=== PATIENT | female | born 1940 | race Caucasian/White ===

== ENCOUNTER 2023-11-11 01:14 | Inpatient (IN) | payer OTHER, SELFPAY ==
[2023-11-10 20:27] VITALS: BP 150/96
[2023-11-10 23:05] VITALS: BP 170/60
[2023-11-10 23:11] VITALS: BMI 21.7
--- NOTE | 2023-11-10 23:19 | ED.GENMED ---
History of Present Illness
General
Chief Complaint: Fall
Source: patient and spouse
Exam Limitations: none
Time Seen by Provider: 11/10/23 23:02
Nursing documentation reviewed up to this point in time: agreed with
Travel History
Have you had any contact with someone who has COVID-19?: No
Do you have any symptoms of coronavirus? Fever > 100 degrees, chills, cough, shortness of breath, sore throat, loss of taste or smell, muscle aches, or headache?: No
History of Present Illness
History of Present Illness:
Pleasant 83-year-old female that presents with right upper leg pain. Patient was in the garden and tripped on a rock on the border. She fell landing on her right thigh. She felt immediate pain. Had difficulty bearing weight. She denies any head
strike or loss of consciousness. She is not on any blood thinners. She reports no other injury. She is accompanied by her . states that she was diagnosed recently with early dementia
Vital signs are stable. Patient not hypoxic
Nursing note reviewed. I agree with nursing documentation up to this point in time.
Home Meds and allergies reviewed.
NUMBER AND COMPLEXITY OF PROBLEMS ADDRESSED AT THE ENCOUNTER
� Chronic conditions affecting care: Hypertension, hyperlipidemia, varicosities of the bilateral lower extremities
� Acute Exacerbation and/or Progression of Chronic Illness: Acute injury
� Differential Diagnosis includes: Hip fracture, musculoskeletal pain, pelvic fracture
AMOUNT AND/OR COMPLEXITY OF DATA TO BE REVIEWED AND ANALYZED
I performed an independent evaluation of the following and my interpretation is:
EKG:
CT:
X-rays: Right femur fracture
Ultrasound:
Laboratory Studies:
Other:
Review of other/old records: Operative report by Dr. Mercado on 06/14/2022 for the unilateral primary osteoarthritis of her right hip.
Clinical information was obtained by an independent historian: present at the bedside
Prescriptions/Medications Considered but not given:
Further testing considered but not performed:
RISK OF COMPLICATIONS AND/OR MORBIDITY OR MORTALITY OF PATIENT MANAGEMENT
Social determinants of health affecting care: Good Social Support
Discussion with other providers: Spoke with Dr. Barriga and Dr. Jimenez. Patient will be admitted to the hospitalist service
Escalation of care including admission/observation vs risk of discharge considered: Patient unable to ambulate due to fracture. She is normally ambulatory. She will be admitted.
CRITICAL CARE NOTE: Not applicable
Total Time (exclusive of procedures):
Update:
Past History
Past History
ED Past Surgical History: Gynecological, Orthopedic (Left hip replacement) and Other (Left mastectomy)
Social History
Tobacco: Non-smoker
Alcohol: Occasional
Drug: None
Personal:
Living: with family
Employment: Employed (Teaches one-day a week)
Review of Systems
Review of Systems
Allergies reviewed?: Yes
Other source history: family
All Other Systems: ROS reviewed and negative except as documented in HPI and ROS
Constitutional: Reports no symptoms
EENT: Reports no symptoms
Respiratory: Reports no symptoms
Cardiac: Reports no symptoms
ABD/GI: Reports no symptoms
: Reports no symptoms
Musculoskeletal: Reports joint pain and muscle stiffness
Skin: Reports no symptoms
Neurological: Reports no symptoms
Endocrine: Reports no symptoms
Hematologic/Lymphatic: Reports no symptoms
Psychiatric: Reports no symptoms
Phy Exam
General Physical Exam
General Presentation: well appearing and no apparent distress
General age: appears stated age
General Skin: warm and dry
General Habitus: normal, elderly and other (Hard of hearing, has bilateral hearing aids)
General Mental: alert and angry (Angry over situation of being admitted)
General Hydration: appears well hydrated
Eye Exam
Eye Exam: PERRL
Pulmonary Exam
Pulmonary Exam: lungs clear and no respiratory distress
Gastrointestinal Exam
Gastrointestinal Exam: non tender and soft
Neurological Exam
Neurological Exam: alert and oriented x3
Musculoskeletal Exam
Musculoskeletal Exam: no edema, joint swelling and neuro vasc intact
Skin Exam
Skin Exam: normal color and warm/dry
Psychiatric Exam
Psychiatric Exam: normal mood/affect, agitated and anxious
Course
Orders/Labs/Results
Orders:
Orders
11/10/23 22:02
CR Femur - Right Min 2 Vw Urgent
Comment:
Reason For Exam: fall, injury
11/10/23 23:11
Comprehensive Metabolic Panel Urgent
Prothrombin Time Urgent
11/10/23 23:12
Complete Blood Count/With Diff Urgent
11/10/23 23:45
PT Consult [Pt Eval And Treat] Urgent
Activity Level: Bedrest for limited time
11/11/23 00:01
Admit/Transfer Patient As Directed
Co-Sign Provider:
Level of Care: Inpatient admission
Assign to:: Medical/Surgical
Physician / Group: Ángel
Diagnosis: Right hip fracture
Reason for Hospitalization: Fall and right hip fracture
Expected length of stay greater than two midnights?: Yes
ELOS- Estimated Length of Stay in days: 3
I certify the patient meets the requirements for IP care: Yes
11/11/23 00:04
Code Status As Directed
Resuscitation Status: Full Code
11/11/23 00:14
Ketorolac [Toradol] 15 mg IV Q6HPRN PRN
11/11/23 01:00
Flush (0.9% Sodium Chloride) [Flush (Nss)] See Dose Instructions IV PER PROTOCOL
11/11/23 02:26
Morphine Sulfate 2 mg IV Q4HPRN PRN
11/11/23 02:26
ORTHOPEDIC CONSULT Routine
Consulting Provider: Austin Barriga
Was physician already notified: Yes
Reason for consult: R hip fracture
Activity As Directed
Activity Level: With Assistance
Precautions As Directed
Type of Precautions: Aspiration
Comment: fall precuation
Vital Signs As Directed
Frequency: Per unit guidelines
Ot Eval And Treat Routine
DX Deep Vein Thrombosis Video Routine
11/11/23 05:38
Basic Metabolic Panel IN AM
Complete Blood Count/With Diff IN AM
Magnesium IN AM
TSH IN AM
11/11/23 Breakfast
Cholesterol Lowering
At Your Request: Full Participation
Cholesterol Lowering: Sodium, 2 Gram
11/11/23 08:00
Acetaminophen [Tylenol] 650 mg PO QID
Amlodipine [Norvasc] 5 mg PO DAILY
Calcium Carbonate/Vitamin D3 [Oscal 500 + D] 500 mg PO BID
Clopidogrel Bisulfate [Plavix] 75 mg PO DAILY
Heparin 5,000 units SC Q8
11/11/23 18:00
Atorvastatin [Lipitor] 80 mg PO QPM
11/11/23 22:00
Aspirin Low Dose EC [Aspir Low (Enteric Coated)] 81 mg PO HS
Famotidine [Pepcid] 20 mg PO HS
Abnormal Lab Results
11/10/23 11/10/23
23:11 23:12
WBC 10.9 H 10^3/uL
(4.8-10.8)
MPV 10.5 H fL
(7.4-10.4)
Absolute Neuts (auto) 7.7 H 10^3/uL
(1.4-6.5)
Absolute Monos (auto) 1.1 H 10^3/uL
(0.1-0.6)
Lymphocytes % 16.2 L %
(20.5-51.1)
Monocytes % 9.8 H %
(1.7-9.3)
BUN 20 H mg/dl
(7-17)
Glucose 109 H mg/dl
(70-99)
AST 38 H U/L
(14-36)
11/10/23 23:12
11/10/23 23:11
Vital Signs
Initial and Last Documented VS:
Initial Vital Signs
Temp Pulse Resp BP Pulse Ox
97.9 F 70 20 150/96 98
11/10/23 20:27 11/10/23 20:27 11/10/23 20:27 11/10/23 20:27 11/10/23 20:27
Last Documented Vital Signs
Temp Pulse Resp BP Pulse Ox
97.6 F 78 16 134/60 98
11/11/23 19:13 11/11/23 19:13 11/11/23 19:13 11/11/23 19:13 11/11/23 19:13
*Critical Care Note
Total Time (30-74mins, 75-104mins- exclusive of procedures): Not Applicable
Update Note
Update Note:
According to Dr. Barriga, nondisplaced transverse periprosthetic greater trochanter fracture. Fortunately these can be treated nonoperatively. Okay for wbat with walker. Follow up 2 weeks for X-rays. No active abduction with physical therapy.
Patient is nonambulatory. Will order PT consult.
ED Attending Note
-
Portions of this chart may have been created with voice recognition software.� Occasional wrong word or��sound alike� substitutions may have occurred due to the inherent limitations of voice recognition software.
Discharge Plan
Departure
Patient Disposition: Admit
Date of Disposition: 11/10/23
Time of Disposition: 23:23
Presentation/result/management discussed w/ accepting MD/DO: Hospitalist
Discharge Problem:
Closed right femoral fracture, Closed intertrochanteric fracture
Interventions
Interventions:
*Risk Screen - Suicide Last Done: 11/11/23 07:12
*General Assessment Last Done: 11/10/23 23:16
*Neglect/Abuse Screening Last Done: 11/10/23 23:18
ED- Fall Risk Assessment Last Done: 11/10/23 23:18
*ED COVID-19 Vaccine History Last Done: 11/10/23 20:32
*Nursing Disposition Last Done: 11/11/23 06:45
ED-Musculoskeletal Assessment Last Done: 11/10/23 23:20
ED- Neurological Assessment Last Done: 11/11/23 19:13
ED-Skin Assessment Last Done: 11/11/23 19:13
Discharge Date and Time
Discharge Date/Time: 11/11/23 20:38
[2023-11-10 23:29] LABS: % Basophils 0.6 % (0-2); % Eosinophils 2.3 % (0-6); % Immature Granulocytes 0.4 % (0-0.5); % Lymphocytes 16.2 % (20.5-51.1); % Monocytes 9.8 % (1.7-9.3); % Neutrophils 70.7 % (42.2-75.2); Absolute Basophils 0.1 10^3/uL (0-0.2); Absolute Eosinophils 0.3 10^3/uL (0-0.7); Absolute Lymphocytes 1.8 10^3/uL (1.2-3.4); Absolute Monocytes 1.1 10^3/uL (0.1-0.6); Absolute Neutrophils 7.7 10^3/uL (1.4-6.5); Hematocrit 37.6 % (37.0-47.0); Mean Corp Hgb Conc. 34.6 g/dL (33.0-37.0); Mean Corpuscular Hgb 30.7 pg (27.0-31.0); Mean Corpuscular Volume 88.9 fL (81.0-99.0); Mean Platelet Volume 10.5 fL (7.4-10.4); Nucleated Red Blood Cells % 0 %; Platelet Count 242 10^3/uL (130-400); Red Blood Cell Count 4.23 10^6/uL (4.20-5.40); Red Cell Dist. Width 13.7 % (11.5-14.5); White Blood Cell Count 10.9 10^3/uL (4.8-10.8)
[2023-11-10 23:38] LABS: ALT (SGPT) 22 U/L (0-35); AST (SGOT) 38 U/L (14-36); Albumin 4.2 g/dl (3.5-5.0); Alkaline Phosphatase 108 U/L (38-126); Blood Urea Nitrogen 20 mg/dl (7-17); Calcium 9.6 mg/dl (8.4-10.2); Carbon Dioxide 27 mmol/L (22-30); Chloride 104 mmol/L (98-107); Estimated Creatinine Clearance 53 ml/min; Glucose 109 mg/dl (70-99); Potassium 4.1 mmol/L (3.5-5.1); Sodium 138 mmol/L (135-145); Total Bilirubin 0.7 mg/dl (0.2-1.3); Total Protein 6.8 g/dl (6.3-8.2); eGFR > 60.00
[2023-11-11] VITALS: BP 150/74
[2023-11-11 00:04] LABS: INR 1.01; PT 13.1 Sec (11.4-14.6)
--- NOTE | 2023-11-11 00:09 | HPS.HSE ---
Family Physician
-
Family Physician: Angie Mantilla
Chief Complaint
-
Mechanical fall
History of Present Illness
83-year-old female with history of hypertension, early dementia, osteoarthritis, who lives at home with her , at the bedside provide detailed information, she supposed to use walker and cane but she does not, look like earlier today
while she was at home watching her working in the backyard look like she can go some stone in the backyard and she fell hitting the right side to the ground immediately experienced severe pain and has been helped out to get up.
Denies any syncope or loss of consciousness or any palpitation or chest pain.
According to the who provide detailed information she does not want to use walker or cane. Look like she had another episode like this 4 months ago broke left hip.
Ortho been contacted and has a prosthesis in the right hip but this nondisplaced fracture from orthospine recommendation is for conservative management with PT OT and pain management.
Past medical history archive reviewed:
Dementia
Hypertension
Osteoarthritis
GERD
History of stroke
Social history: Lives at home with , no smoking, while occasionally drinks some alcohol .
Family history: Reviewed and noncontributory
Medical History
Past Medical History
Past Medical History: Reports Other
Past Surgical History: Reports Other
Social History
Tobacco: Other
Family History
Family History: Other
Allergies / Home Medications
Allergies reflects when Allergies were last updated in [employer].
Home Medications with original date entered in [employer]
Allergy/Medication List:
Allergies
Allergy/AdvReac Type Severity Reaction Status Date / Time
latex [Latex] Allergy Swelling Verified 11/10/23 20:32
Sulfa (Sulfonamide Allergy Itching Verified 11/10/23 20:32
Antibiotics)
amoxicillin [Amoxicillin] AdvReac SLIGHT VAG Verified 11/10/23 20:32
ITCH
Home Medications
amlodipine 5 mg tablet 5 mg PO DAILY 10/26/10
hydrochlorothiazide 25 mg tablet 25 mg PO DAILY 10/26/10
atorvastatin 80 mg tablet 80 mg PO QPM 10/23/16
calcium citrate 315 mg calcium-vitamin D3 6.25 mcg (250 unit) tablet 1 ea PO BID 01/07/18
bkkukpiq-ret-lzkrx acid 0.4 mg-lycopene 300 mcg-lutein 250 mcg tablet (Centrum Silver) 1 ea PO HS 01/07/18
aspirin 81 mg tablet,delayed release 81 mg PO HS 05/29/22
fluocinolone 1 dose topical Q48H 05/29/22
fluoride (sodium) 1.1 % dental paste (Sodium Fluoride 5000 Dry Mouth) 1 applic dental HS 05/29/22
ketoconazole 1 % shampoo 1 applic topical Q3D 05/29/22
triamcinolone acetonide 0.1 % topical ointment 1 applic topical DAILY PRN RASH 05/29/22
acetaminophen 325 mg tablet 650 mg (2 x 325 mg) PO QID #0 tabs 06/15/22
aspirin 325 mg tablet 325 mg PO DAILY Blood clot prevention/tx #1 tab 06/15/22
clopidogrel 75 mg tablet 75 mg PO DAILY stroke #0 tabs 06/15/22
dexamethasone 2 mg tablet 2 mg PO Q12 #11 tabs 06/15/22
docusate sodium 100 mg capsule 100 mg PO BID #1 cap 06/15/22
famotidine 20 mg tablet 20 mg PO HS GI prophylaxis #30 tabs 06/15/22
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
oxycodone 5 mg tablet 5 - 10 mg (1 - 2 x 5 mg) PO Q6HPRN PRN 1 tab moderate-2 tabs severe pain #30 tabs 06/15/22
sennosides 8.6 mg tablet (senna) 17.2 mg (2 x 8.6 mg) PO BID laxative #2 tabs 06/15/22
Review of Systems
-
A 12 point ROS was completed and negative except as noted: Yes
Physical Exam
Vital Signs
Vital Signs
Temp Pulse Resp BP Pulse Ox
97.9 F 63 13 170/60 97
11/10/23 20:27 11/10/23 23:05 11/10/23 23:05 11/10/23 23:05 11/10/23 23:14
Physical Exam
General: Other
Laboratory Results
-
11/10/23 23:12
11/10/23 23:11
Laboratory Results
PT 13.1 Sec (11.4-14.6) 11/10/23 23:11
INR 1.01 11/10/23 23:11
Total Bilirubin 0.7 mg/dl (0.2-1.3) 11/10/23 23:11
AST 38 U/L (14-36) H 11/10/23 23:11
ALT 22 U/L (0-35) 11/10/23 23:11
Alkaline Phosphatase 108 U/L (38-126) 11/10/23 23:11
Right hip x-ray:nondisplaced transverse periprosthetic greater trochanter fracture
Impression/Plan
-
IMPRESSION:
83-year-old female with history of hypertension, early dementia dyslipidemia, had a mechanical fall after her foot trapped between some stone in her backyard and fall sideways in the right side and the workup showed nondisplaced fracture in the
right greater trochanteric around prosthesis.
nondisplaced transverse periprosthetic greater trochanter fracture
Early dementia
Hypertension with mild elevation of the blood
History of stroke
Dyslipidemia
PLAN:
Pain control with morphine as needed
Toradol as needed
Ortho consult
No plan for surgery since nondisplaced and is's per Ortho recommendation
PT OT
Fall aspiration precaution
Continue aspirin and Plavix
At hydralazine as needed for systolic more than 170
Amlodipine
All discussed with the patient and the will provide detailed information
Discussed with the ER physician
CODE STATUS full code
DVT prophylaxis heparin subcu
[2023-11-11 01:00] VITALS: BP 144/76
[2023-11-11 05:46] LABS: % Basophils 0.9 % (0-2); % Eosinophils 2.4 % (0-6); % Immature Granulocytes 0.3 % (0-0.5); % Lymphocytes 14.8 % (20.5-51.1); % Monocytes 10.9 % (1.7-9.3); % Neutrophils 70.7 % (42.2-75.2); Absolute Basophils 0.1 10^3/uL (0-0.2); Absolute Eosinophils 0.2 10^3/uL (0-0.7); Absolute Lymphocytes 1.3 10^3/uL (1.2-3.4); Absolute Neutrophils 6.2 10^3/uL (1.4-6.5); Hematocrit 38.4 % (37.0-47.0); Hemoglobin 13.2 g/dL (12.0-16.0); Mean Corp Hgb Conc. 34.4 g/dL (33.0-37.0); Mean Corpuscular Hgb 30.8 pg (27.0-31.0); Mean Corpuscular Volume 89.7 fL (81.0-99.0); Mean Platelet Volume 10.3 fL (7.4-10.4); Nucleated Red Blood Cells % 0 %; Platelet Count 229 10^3/uL (130-400); Red Blood Cell Count 4.28 10^6/uL (4.20-5.40); Red Cell Dist. Width 13.6 % (11.5-14.5); White Blood Cell Count 8.7 10^3/uL (4.8-10.8)
[2023-11-11 06:02] LABS: Blood Urea Nitrogen 16 mg/dl (7-17); Calcium 9.3 mg/dl (8.4-10.2); Carbon Dioxide 24 mmol/L (22-30); Chloride 106 mmol/L (98-107); Estimated Creatinine Clearance 70 ml/min; Glucose 103 mg/dl (70-99); Magnesium 1.9 mg/dl (1.6-2.3); Potassium 3.6 mmol/L (3.5-5.1); Sodium 137 mmol/L (135-145); eGFR > 60.00
[2023-11-11 06:30] LABS: TSH 4.38 uIU/ml (0.47-4.68)
[2023-11-11 07:44] VITALS: BP 136/79
[2023-11-11] MEDS: TYLENOL 650 MG PO ×3 (07:46→21:02)
[2023-11-11] MEDS: HEPARIN 5000 UNITS SC ×2 (07:46→15:19)
[2023-11-11] MEDS: NORVASC 5 MG PO (07:47)
[2023-11-11] MEDS: PLAVIX 75 MG PO (07:47)
[2023-11-11] MEDS: OSCAL 500 + D 500 MG PO ×2 (07:51→20:04)
[2023-11-11 07:57] VITALS: BP 146/78
--- NOTE | 2023-11-11 08:07 | W.PN.HOSP.TC ---
Addendum entered and electronically signed by José Antonio Steiner MD 11/11/23 15:33:
Patient has been repeatedly very impulsive difficult to keep at bedrest and was given a dosage of 0.5 mg of IV Ativan with little effect/she will be a continued risk for falls given her continued impulsive behavior and underlying dementia and
difficult to redirect will add dose of Risperdal tonight and increase Ativan as needed for agitation
Original Note:
Today's Communication/Plan
-
PT OT assessment will be julio to the side on level of independence and discharge plan
Assessment / Plan
Assessment / Plan
83-year-old female with history of hypertension, early dementia, osteoarthritis, who lives at home with her , at the bedside provide detailed information, she supposed to use walker and cane but she does not, look like earlier today
while she was at home watching her working in the backyard look like she can go some stone in the backyard and she fell hitting the right side to the ground immediately experienced severe pain and has been helped out to get up.
Denies any syncope or loss of consciousness or any palpitation or chest pain.
According to the who provide detailed information she does not want to use walker or cane. Look like she had another episode like this 4 months ago broke left hip.
Ortho been contacted and has a prosthesis in the right hip but this nondisplaced fracture from orthospine recommendation is for conservative management with PT OT and pain management.
Nondisplaced transverse periprosthetic RT greater trochanter fracture
Early dementia
Hypertension with mild elevation of the blood
History of stroke
Dyslipidemia
PLAN:
Pain control with morphine as needed
Toradol as needed
Ortho consult
No plan for surgery since nondisplaced and is's per Ortho recommendation/weightbearing as tolerated
PT OT/will need to see how she does this morning as was unsteady on her feet after out of bed overnight in ED and attempts to ambulate.
Fall /aspiration precaution
Continue aspirin and Plavix
At hydralazine as needed for systolic more than 170
Amlodipine
All discussed with the patient and the will provide detailed information
Discussed with the ER physician and orthopedics this morning
CODE STATUS full code
DVT prophylaxis heparin subcu
Anticipated Discharge: Within 24 hours
Subjective/Interval History
-
Date of Service: November 11, 2023
She is frustrated over the fact that she fell and met with orthopedics this morning and told she may be able to go home but nursing noted she was quite unsteady on her feet would get out of bed she will be weightbearing as tolerated and will need PT
assessment prior to discharge plan
Objective Data
-
Labs:
Laboratory Results
11/10/23 11/10/23 11/11/23
23:11 23:12 05:38
WBC 10.9 H 8.7
Hgb 13.0 13.2
Hct 37.6 38.4
Plt Count 242 229
PT 13.1
INR 1.01
Sodium 138 137
Potassium 4.1 3.6
Chloride 104 106
Carbon Dioxide 27 24
BUN 20 H 16
Creatinine 0.8 0.6
Glucose 109 H 103 H
Calcium 9.6 9.3
Total Bilirubin 0.7
AST 38 H
ALT 22
Alkaline Phosphatase 108
Vital Signs:
Vital Signs
Temp Pulse Resp BP Pulse Ox
98.1 F 68 16 146/78 98
11/11/23 07:44 11/11/23 07:47 11/11/23 07:44 11/11/23 07:57 11/11/23 07:44
Review of Systems
-
History Source: Patient
Constitutional: Reports No Symptoms
Abdomen/GI: Reports No Symptoms
Musculoskeletal: Reports Joint Pain and Muscle Pain
Physical Exam
-
General: Well Developed
HEENT: Normocephalic
Respiratory: Clear to Auscultation
Cardiac: Regular Rhythm
GI: Soft
Genito-urinary: Costovertebral Angle Tend
Musculoskeletal: Edema, Right Lower Extrem
Data Reviewed
-
Total Time Spent with Patient (in minutes): 45
Labs: Labs Reviewed by me (CBC and chemistry stable)
--- NOTE | 2023-11-11 08:10 | W.PN.UPDATE ---
Update Note
Progress Note Update
Full orthopedic consult dictated:
Dx: Nondisplaced right hip periprosthetic femur fracture (greater trochanter)
Plan: X-rays right hip/femur show nondisplaced fracture greater trochanter. Right hip/knee prosthesis appears stable and no other fractures noted. Dr. Barriga reviewed studies and no surgical intervention required. Patient may weight-bear
as tolerated but must avoid active hip abduction. Cleared for PT but again avoid active hip abduction. Follow-up orthopedic office 2 weeks for x-rays to make sure no displacement of the fracture.
[2023-11-11] MEDS: TYLENOL PO (12:56)
[2023-11-11] MEDS: ATIVAN 0.5 MG IV (13:36)
[2023-11-11] MEDS: NSS (PRESERVATIVE FREE) 0.25 ML IV (13:37)
[2023-11-11 15:10] VITALS: BP 155/70
--- NOTE | 2023-11-11 15:11 | CM ---
Addendum entered by Richa Tang RN 11/11/23 15:47:
Patient has been recommended for home care. Patient's is agreeable to [facility]. Referral sent via [facility]. Patient's explained that he's very tired and does not want to take patient home until tomorrow am. CM updated hospitalist.
PLAN: Home with VN
Original Note:
CM met with patient in room. Patient's confirmed demographics. Patient lives . She stays on the first floor. Patient does not have a history of SNF. Patient briefly has VN services, but patient's does not know agency. Not
currently on services. Patient is active with her PCP. Patient has medication coverage.
Patient's uncertain on discharge plan preference. CM will await PT evaluation for further discharge planning efforts.
[2023-11-11] MEDS: LIPITOR 80 MG PO (17:20)
--- NOTE | 2023-11-11 18:20 | PTCARENOTE ---
pt very active throughout the day using RW with stand by assistance provided. pt is confused and forgetful requiring a lot of redirecting which is difficult as pt is very stubborn as conveyed by her spouse who has been present with pt since 8 am
leaving at 1730. admission staff notified of pts behaviors and tendencies for room placement and staff allocation. MD Steiner aware of behavior as well and has provided appropriate PRN and HS medication orders. pt eating dinner in ER stretcher
watching TV, rail up x1, bed low, call barrios and belongings in reach, room near RN station, staff working POD is aware of pts impulsive behaviors with fall risk wrist band and precautions in place. care plan continues to be followed.
--- NOTE | 2023-11-11 19:00 | PTCARENOTE ---
Video monitoring established to further ensure safety.
[2023-11-11 19:13] VITALS: BP 134/60
--- NOTE | 2023-11-11 19:15 | EDRN ---
Per report, pt has been walking around with walker and recently escaped into waiting room. Med sitter set up in pt room and it was explained to pt. Pt sitting on side of stretcher, smiling and pleasant. Pt oriented to self, does not know where
she is or why. When informed she is in the hospital and has a broken hip, she nodded her head and said that sounded familiar 'like someone told me that before.' Pt thinks it is the s. Pt denies pain and offers no complaints. While taking BP
on R arm, pt said she had a mastectomy on that side - informed pt if was on her L side and showed her the limb alert bracelet she is wearing to notify staff of this. Pt felt her breasts and said 'oh yeah, you're right.' This happened twice while
taking pt's VS. Pt given ice water to drink per request. Oriented pt to her room, call barrios. Pt declines watching TV, has magazines at bedside. Adjusted HOB for pt.
--- NOTE | 2023-11-11 19:30 | EDRN ---
Pt came out of room multiple times and had to be re-directed by this RN. Pt insistent on walking to bathroom upstairs. Pt argumentative. Pt given toothbrush, toothpaste and soap and directed into bathroom. Pt smiling, laughing and pleasant
stating 'I like you.'
[2023-11-11] MEDS: RISPERDAL 0.25 MG PO (21:02)
[2023-11-11] MEDS: ASPIR LOW (ENTERIC COATED) 81 MG PO (21:02)
[2023-11-11] MEDS: PEPCID 20 MG PO (21:02)
[2023-11-11] MEDS: HEPARIN SC (23:06)
[2023-11-12 00:31] VITALS: BP 140/66
[2023-11-12] MEDS: SYNTHROID 25 MCG PO (05:50)
[2023-11-12 07:41] VITALS: BP 144/77
[2023-11-12] MEDS: TYLENOL 650 MG PO (09:08)
[2023-11-12] MEDS: PLAVIX 75 MG PO (09:09)
[2023-11-12] MEDS: NORVASC 5 MG PO (09:09)
[2023-11-12] MEDS: HEPARIN 5000 UNITS SC (09:09)
[2023-11-12] MEDS: OSCAL 500 + D 500 MG PO (09:09)
--- NOTE | 2023-11-12 09:17 | W.PN.HOSP.TC ---
Addendum entered and electronically signed by Caleb Xavier MD 11/12/23 14:14:
Patient witnessed by nursing staff to ambulate around the hallways fine.
PT recommends home care.
Will discharge home with oxycodone, Tylenol; case management to set up home PT/visiting nurses.
Follow-up with orthopedic surgery in the office in 2 weeks for repeat x-rays.
Original Note:
Today's Communication/Plan
-
see bold
Assessment / Plan
Assessment / Plan
83-year-old female with history of hypertension, early dementia, osteoarthritis, who lives at home with her , at the bedside provide detailed information, she supposed to use walker and cane but she does not, look like earlier today
while she was at home watching her working in the backyard look like she can go some stone in the backyard and she fell hitting the right side to the ground immediately experienced severe pain and has been helped out to get up.
Denies any syncope or loss of consciousness or any palpitation or chest pain.
According to the who provide detailed information she does not want to use walker or cane. Look like she had another episode like this 4 months ago broke left hip. Ortho been contacted and has a prosthesis in the right hip but this
nondisplaced fracture from orthospine recommendation is for conservative management with PT OT and pain management.
#Nondisplaced transverse periprosthetic RT greater trochanter fracture
Appreciate orthopedic surgery input, recommend nonsurgical management
Weightbearing as tolerated, avoid abduction
PT/OT, pain control
PT recommends home care
#Early dementia
Continue risperidone
Monitor mental status
#Benign essential hypertension
Continue amlodipine
#Hyperlipidemia
#Stroke
Continue statin, aspirin
#Hypothyroidism
Continue levothyroxine
#DVT prophylaxis�subcu Lovenox
Full code
Physical Exam
General: No acute distress
HEENT: Normocephalic, Atraumatic, EOMI, MMM
Respiratory: Clear to Auscultation bilaterally
Cardiac: Normal S1/S2, Regular Rate and Rhythm
GI: Soft, Nontender, Nondistended, Normal Bowel Sounds
Extremities: No Clubbing, Cyanosis, or Edema
Neuro: Nonfocal/Grossly Intact
Psych: Calm, Cooperative
Anticipated Discharge: Within 24 hours
Subjective/Interval History
-
Date of Service: November 12, 2023
Complains of right hip pain. Denies constipation. No chest pain, no shortness of breath.
Objective Data
-
Vital Signs:
Vital Signs
Temp Pulse Resp BP Pulse Ox
98.4 F 74 18 144/77 96
11/12/23 07:41 11/12/23 07:41 11/12/23 07:41 11/12/23 07:41 11/12/23 07:41
I&O
11/11/23 11/12/23 11/13/23
06:59 06:59 06:59
Intake Total 250 / 250
Balance 250 / 250
[2023-11-12] MEDS: TYLENOL PO (14:10)
--- NOTE | 2023-11-12 14:13 | W.DCSUMMARY ---
Discharge Summary
Discharge Data
Date of Admission: 11/11/23
Date of Discharge: 11/12/23
-
Pending Results: No
Hospital Course
Discharge diagnosis:
Nondisplaced transverse periprosthetic right proximal femur fracture
Early dementia
Benign essential hypertension
Hyperlipidemia
Stroke
Hypothyroidism
Consults: Orthopaedic surgery
Right Femur XR:
There is a right hip prosthesis. Prosthetic components appear aligned. There is a transverse nondisplaced fracture of the proximal femur. There are no additional fractures. There is a knee prosthesis which appears aligned. There are no lytic or
sclerotic lesions. Vascular calcifications are noted.
Hospital Course:
83-year-old female with a past medical history of early dementia, hypertension, and osteoarthritis who suffered a mechanical fall, and was admitted for right hip pain. Patient was found to have a nondisplaced periprosthetic right proximal femur
fracture. She was seen in conjunction with orthopedic surgery, who recommended conservative management, weightbearing as tolerated with no hip abduction. Patient was treated pain control, PT/OT. PT recommends home care. Patient was witnessed to
ambulate in the hallways without any difficulty. She is medically stable for discharge with home PT. She needs to follow-up with orthopedic surgery in the office in 2 weeks for repeat x-rays.
Disposition: Home with home care
Discharge planning: Required 33 minutes
Discharge Plan
-
Patient Disposition: Home with Home Care
Discharge Diagnosis/Procedures: Nondisplaced transverse periprosthetic right greater trochanter fracture
Condition: Fair
Diet: Regular
Activity: As tolerated
Additional Activity: Weightbearing as tolerated, no abduction
Other Services: VN and PT
Instructions: Preventing falls in adults
Referrals:
Angie Mantilla DO [Family Provider] - in one week
Austin Barriga MD [Active] - in two weeks
Prescriptions:
New
oxycodone 5 mg Tablet
5 mg PO Q4HPRN PRN (Reason: moderate pain) Qty: 30 0RF
acetaminophen 500 mg tablet
1,000 mg PO TID @ 0800,1200,1700 Qty: 180 0RF
Continued
amlodipine 5 MG tablet
5 mg PO DAILY
atorvastatin 80 MG tablet
80 mg PO QPM
Centrum Silver 1 EACH tablet
1 ea PO HS
calcium citrate-vitamin D3 1 EACH tablet
1 ea PO BID
aspirin 81 MG tablet,delayed release (DR/EC)
81 mg PO HS
Hold Instructions: Resume on 07/13/22. resume when full dose ASA is d/c in one month
levothyroxine 25 mcg tablet
25 mcg PO DAILY
Discharge Orders:
Discharge Patient (As Directed); Ordered 11/12/23
Ordered By: Caleb Xavier
Discharge Date and Time
Discharge Date/Time: 11/12/23 14:50
Print Language: [place]
--- NOTE | 2023-11-12 14:18 | PTCARENOTE ---
Notified provider the patient wished to be discharged.
[2023-11-12 14:27] VITALS: BP 130/61
[2023-11-12] MEDS: PREVNAR 20 0.5 ML IM (14:32)
--- NOTE | 2023-11-12 14:32 | CM ---
manager resort reviewed patient's chart and met with patient and spouse at bedside, patient is for discharge to home today and recommendation is for visiting nurses options reviewed with patient and spouse and they have selected [facility], [facility] liaison to
follow patient, home address is [address] [place] [id number], IMM provided.
Plan; Home with spouse and [facility].
== END 2023-11-12 14:50 | disposition home health service (06) | DRG 536 ==
LOC: 4 WEST ACU 01:14
PROVIDERS: ADMITTING PHYSICIAN Internal Medicine; ATTENDING PHYSICIAN Family Medicine; CONSULT PHYSICIAN Orthopaedic Surgery; EMERGENCY PHYSICIAN Student in an Organized Health Care Education/Training Program; FAMILY PHYSICIAN Family Medicine
DX: S72.114A Nondisplaced fracture of greater trochanter of right femur, initial encounter for closed fracture (principal); M97.01XA Periprosthetic fracture around internal prosthetic right hip joint, initial encounter; W01.0XXA Fall on same level from slipping, tripping and stumbling without subsequent striking against object, initial encounter; F03.90 Unspecified dementia, unspecified severity, without behavioral disturbance, psychotic disturbance, mood disturbance, and anxiety; I10 Essential (primary) hypertension; E78.5 Hyperlipidemia, unspecified; E03.9 Hypothyroidism, unspecified; Z86.73 Personal history of transient ischemic attack (TIA), and cerebral infarction without residual deficits; Z79.82 Long term (current) use of aspirin
CPT/HCPCS: 73552; 80048; 80053; 83735; 84443; 85025; 85610; 87070; 90677; 97530; 97535; 99284; G0009